=== PATIENT | female | born 1980 | race Caucasian/White ===

== ENCOUNTER 2023-05-27 13:24 | Emergency (ER) | payer BC ==
[2023-05-27] MEDS ORDERED: Ketorolac 30 MG/ML SDV IM ONE (13:54)
[2023-05-27] MEDS ORDERED: predniSONE 20 MG Tab PO ONE (13:54)
== END 2023-05-27 14:34 | disposition home or self-care (01) ==
LOC: VM.ED 13:24
DX: M54.50 Low back pain, unspecified (principal); G43.009 Migraine without aura, not intractable, without status migrainosus; M62.830 Muscle spasm of back; Z79.899 Other long term (current) drug therapy; Z91.041 Radiographic dye allergy status
CPT/HCPCS: 96372; 99283; J1885; J7512

== ENCOUNTER 2023-06-28 11:27 | Emergency (ER) | payer BC ==
[2023-06-28] MEDS ORDERED: Ketorolac 30 MG/ML SDV IM ONE (12:11)
[2023-06-28] MEDS ORDERED: Metoclopramide 10 MG/2 ML SDV IM ONE (12:12)
[2023-06-28] MEDS ORDERED: diphenhydrAMINE 50 MG/ML SDV IM ONE (12:13)
== END 2023-06-28 13:03 | disposition home or self-care (01) ==
LOC: VM.ED 11:27
DX: G43.909 Migraine, unspecified, not intractable, without status migrainosus (principal); Z88.0 Allergy status to penicillin; Z91.041 Radiographic dye allergy status; Z79.899 Other long term (current) drug therapy
CPT/HCPCS: 96372; 99283; J1200; J1885; J2765

== ENCOUNTER 2023-06-30 14:58 | Emergency (ER) | payer BC ==
[2023-06-30] MEDS: OLANZapine 2.5 MG Tab PO ONE (15:25)
== END 2023-06-30 16:23 | disposition home or self-care (01) ==
LOC: VM.ED 14:58
DX: R42 Dizziness and giddiness (principal); I10 Essential (primary) hypertension; Z88.0 Allergy status to penicillin; Z91.041 Radiographic dye allergy status; Z79.899 Other long term (current) drug therapy
CPT/HCPCS: 99283; 99284; A9270-GY

== ENCOUNTER 2023-07-07 11:12 | Emergency (ER) | payer BC ==
[2023-07-07] MEDS ORDERED: Ketorolac 30 MG/ML SDV IM ONE (11:53)
[2023-07-07] MEDS ORDERED: Metoclopramide 10 MG/2 ML SDV IM ONE (11:53)
[2023-07-07 11:54] LABS: BASOPHILS PERCENT AUTO 0.6 % (0.2-1.2); EOSINOPHILS ABSOLUTE AUTO 0.2 x10^3/uL (0.0-0.5); EOSINOPHILS PERCENT AUTO 2.5 % (0.0-4.0); HEMATOCRIT 40.7 % (33.0-47.0); HEMOGLOBIN 14.2 g/dL (12.0-16.0); IMMATURE GRAN ABSOLUTE AUTO 0.01 x10^3/uL (0.00-0.07); LYMPHOCYTES ABSOLUTE AUTO 2.4 x10^3/uL (1.0-4.8); LYMPHOCYTES PERCENT AUTO 33.9 % (25.0-50.0); MEAN CORPUSCULAR HEMOGLOBIN 34.5 pg (26.0-32.0); MEAN CORPUSCULAR HGB CONC 34.9 g/dL (32.0-36.0); MONOCYTES ABSOLUTE AUTO 0.5 x10^3/uL (0.0-0.8); MONOCYTES PERCENT AUTO 7.5 % (2.0-11.0); NEUTROPHILS PERCENT AUTO 55.4 % (50.0-80.0); PLATELET COUNT,PLT 236 x10^3/uL (130-400); RED BLOOD CELL COUNT 4.11 x10^6/uL (4.00-5.50); WHITE BLOOD CELL COUNT,WBC 7.2 x10^3/uL (4.0-10.0)
[2023-07-07 11:55] LABS: BILIRUBIN,URINE NEGATIVE (NEGATIVE); COLOR,URINE YELLOW (YELLOW); GLUCOSE,URINE NEGATIVE (NEGATIVE); KETONES,URINE NEGATIVE (NEGATIVE); LEUKOCYTE ESTERASE,URINE NEGATIVE (NEGATIVE); NITRITE,URINE NEGATIVE (NEGATIVE); OCCULT BLOOD,URINE MODERATE (NEGATIVE); PROTEIN,URINE NEGATIVE (NEGATIVE); UROBILINOGEN,URINE 0.2 EU/dL (0.2)
[2023-07-07 11:58] LABS: APPEARANCE,URINE SLIGHTLY CLOUDY (CLEAR); BACTERIA,URINE RARE /HPF (NOT SEEN); MUCUS,URINE NOT SEEN /LPF (NOT SEEN); SQUAMOUS EPITHELIAL CELLS,UR RARE /HPF (NOT SEEN); WBC,URINE NOT SEEN /HPF (NOT SEEN)
[2023-07-07 12:23] LABS: A/G RATIO 1.09; ALANINE AMINOTRANSFERASE,ALT 48 U/L (14-59); ALBUMIN 3.7 g/dL (3.4-5.0); ALKALINE PHOSPHATASE 112 U/L (46-116); ANION GAP 13.2 mmol/L (5-15); ASPARTATE AMNIOTRANSFERASE,AST 30 U/L (15-37); BILIRUBIN TOTAL 0.5 mg/dL (0.2-1.0); BLOOD UREA NITROGEN,BUN 24 mg/dL (7-18); CALCIUM 9.4 mg/dL (8.5-10.1); CARBON DIOXIDE,CO2 27 mmol/L (21-32); CHLORIDE,CL 105 mmol/L (98-107); CREATININE 1.3 mg/dL (0.55-1.02); ESTIMATED GFR 52 mL/min (>=60); GLUCOSE RANDOM 124 mg/dL (70-99); MAGNESIUM 2.1 mg/dL (1.8-2.4); POTASSIUM,K 4.2 mmol/L (3.5-5.1); PROTEIN TOTAL,TP 7.1 g/dL (6.4-8.2); SODIUM,NA 141 mmol/L (136-145); TSH ULTRASENSITIVE 1.319 uIU/mL (0.358-3.74)
== END 2023-07-07 13:59 | disposition home or self-care (01) ==
LOC: VM.ED 11:12
DX: G43.909 Migraine, unspecified, not intractable, without status migrainosus (principal); I10 Essential (primary) hypertension; Z91.041 Radiographic dye allergy status; Z88.0 Allergy status to penicillin; Z79.899 Other long term (current) drug therapy
CPT/HCPCS: 36415; 80053; 81001; 83735; 84443; 85025; 86140; 96372; 99284; J1885; J2765

== ENCOUNTER 2023-08-16 16:04 | Emergency (ER) | payer BC ==
[2023-08-16] MEDS ORDERED: Ketorolac 30 MG/ML SDV IM ONE (16:39)
[2023-08-16] MEDS ORDERED: diphenhydrAMINE 50 MG/ML SDV IM ONE (16:40)
== END 2023-08-16 17:46 | disposition home or self-care (01) ==
LOC: VM.ED 16:04
DX: G43.909 Migraine, unspecified, not intractable, without status migrainosus (principal); Z79.899 Other long term (current) drug therapy; Z88.0 Allergy status to penicillin; Z91.041 Radiographic dye allergy status
CPT/HCPCS: 96372; 99283; J1200; J1885; J3230

== ENCOUNTER 2024-07-24 10:03 | Day surgery (SDC) | payer BC ==
[2024-07-24] MEDS: Lactated Ringers 1,000 ML IV SCH (10:19)
[2024-07-24] MEDS ORDERED: fentaNYL 100 MCG/2 ML SDV ONE (11:24)
[2024-07-24] MEDS ORDERED: Propofol 200 MG/20 ML SDV ONE ×3 (11:24→11:52)
== END 2024-07-24 12:55 | disposition home or self-care (01) ==
LOC: VM.SDS 10:03
PROVIDERS: ATTEND Surgery
DX: Z12.11 Encounter for screening for malignant neoplasm of colon (principal); F33.1 Major depressive disorder, recurrent, moderate; Z79.899 Other long term (current) drug therapy
CPT/HCPCS: J2704; J3010; J7120

== ENCOUNTER 2024-07-26 12:47 | Emergency (ER) | payer BC ==
[2024-07-26] MEDS: diphenhydrAMINE 50 MG/ML SDV IM ONE (13:07)
[2024-07-26] MEDS: Ondansetron 4 MG Tab.DIS PO ONE (13:07)
[2024-07-26] MEDS: Ketorolac 30 MG/ML SDV IM ONE (13:07)
== END 2024-07-26 13:44 | disposition home or self-care (01) ==
LOC: VM.ED 12:47
DX: G43.909 Migraine, unspecified, not intractable, without status migrainosus (principal); I10 Essential (primary) hypertension; Z79.899 Other long term (current) drug therapy; Z79.84 Long term (current) use of oral hypoglycemic drugs; Z88.0 Allergy status to penicillin; Z88.5 Allergy status to narcotic agent; Z88.8 Allergy status to other drugs, medicaments and biological substances; Z91.041 Radiographic dye allergy status
CPT/HCPCS: 96372; 99283; A9270-GY; J1200; J1885

== ENCOUNTER 2024-07-27 20:27 | Emergency (ER) | payer BC ==
[2024-07-27] MEDS: Haloperidol Lactate 5 MG/ML SDV IV ONE (20:47)
[2024-07-27] MEDS: Ondansetron 8 MG in Sodium Chloride 0.9% 100 ML IV ONE (20:48)
[2024-07-27] MEDS: Prochlorperazine 10 MG/2 ML SDV IV ONE (20:48)
== END 2024-07-27 21:24 | disposition home or self-care (01) ==
LOC: VM.ED 20:27
DX: G43.909 Migraine, unspecified, not intractable, without status migrainosus (principal); I10 Essential (primary) hypertension; Z79.84 Long term (current) use of oral hypoglycemic drugs; Z79.899 Other long term (current) drug therapy; Z88.0 Allergy status to penicillin; Z91.048 Other nonmedicinal substance allergy status; Z88.8 Allergy status to other drugs, medicaments and biological substances
CPT/HCPCS: 96365; 96375; 99283-25; J0780; J1630; J2405; J3490

== ENCOUNTER 2024-08-17 12:05 | Emergency (ER) | payer BC ==
[2024-08-17] MEDS: Prochlorperazine 10 MG/2 ML SDV IV ONE (12:38)
[2024-08-17] MEDS: Haloperidol Lactate 5 MG/ML SDV IV ONE (12:39)
[2024-08-17] MEDS: Ondansetron 4 MG/2 ML SDV IVPUSH ONE (12:39)
== END 2024-08-17 14:07 | disposition home or self-care (01) ==
LOC: VM.ED 12:05
DX: G43.909 Migraine, unspecified, not intractable, without status migrainosus (principal); Z88.0 Allergy status to penicillin; Z91.048 Other nonmedicinal substance allergy status; Z88.8 Allergy status to other drugs, medicaments and biological substances
CPT/HCPCS: 96374; 96375; 99283; 99283-25; J0780; J1630; J2405

== ENCOUNTER 2024-08-25 12:21 | Emergency (ER) | payer BC ==
[2024-08-25] MEDS ORDERED: Sodium Chloride 0.9% 10 ML Syringe FLUSH PRN (12:31)
[2024-08-25 12:45] LABS: BASOPHILS PERCENT AUTO 0.3 % (0.2-1.2); EOSINOPHILS ABSOLUTE AUTO 0.1 x10^3/uL (0.0-0.5); EOSINOPHILS PERCENT AUTO 1.1 % (0.0-4.0); HEMATOCRIT 32.3 % (33.0-47.0); HEMOGLOBIN 11.3 g/dL (12.0-16.0); IMMATURE GRAN ABSOLUTE AUTO 0.02 x10^3/uL (0.00-0.07); LYMPHOCYTES ABSOLUTE AUTO 2.4 x10^3/uL (1.0-4.8); LYMPHOCYTES PERCENT AUTO 24.1 % (25.0-50.0); MEAN CORPUSCULAR HEMOGLOBIN 33.9 pg (26.0-32.0); MONOCYTES ABSOLUTE AUTO 0.7 x10^3/uL (0.0-0.8); MONOCYTES PERCENT AUTO 7.3 % (2.0-11.0); NEUTROPHILS ABSOLUTE AUTO 6.7 x10^3/uL (1.8-7.7); PLATELET COUNT,PLT 234 x10^3/uL (130-400); RED BLOOD CELL COUNT 3.33 x10^6/uL (4.00-5.50); WHITE BLOOD CELL COUNT,WBC 10.1 x10^3/uL (4.0-10.0)
[2024-08-25] MEDS: Lactated Ringers 1,000 ML IV ONE ×2 (12:58→13:41)
[2024-08-25 13:05] LABS: ALANINE AMINOTRANSFERASE,ALT 14 U/L (14-59); ALBUMIN 3.4 g/dL (3.4-5.0); ALKALINE PHOSPHATASE 56 U/L (46-116); ANION GAP 16.9 mmol/L (5-15); ASPARTATE AMNIOTRANSFERASE,AST 16 U/L (15-37); BILIRUBIN TOTAL 0.6 mg/dL (0.2-1.0); BLOOD UREA NITROGEN,BUN 13 mg/dL (7-18); CARBON DIOXIDE,CO2 23 mmol/L (21-32); CHLORIDE,CL 100 mmol/L (98-107); CREATININE 1.3 mg/dL (0.55-1.02); ESTIMATED GFR 51 mL/min (>=60); GLUCOSE RANDOM 149 mg/dL (70-99); POTASSIUM,K 3.9 mmol/L (3.5-5.1); PROTEIN TOTAL,TP 6.5 g/dL (6.4-8.2); SODIUM,NA 136 mmol/L (136-145)
[2024-08-25 13:06] LABS: ETHANOL BLOOD MEDICAL < 3 mg/dL (0-3)
[2024-08-25 13:10] LABS: APPEARANCE,URINE CLEAR (CLEAR); BILIRUBIN,URINE NEGATIVE (NEGATIVE); COLOR,URINE YELLOW (YELLOW); GLUCOSE,URINE NEGATIVE (NEGATIVE); KETONES,URINE NEGATIVE (NEGATIVE); LEUKOCYTE ESTERASE,URINE NEGATIVE (NEGATIVE); NITRITE,URINE NEGATIVE (NEGATIVE); OCCULT BLOOD,URINE NEGATIVE (NEGATIVE); PROTEIN,URINE NEGATIVE (NEGATIVE); UROBILINOGEN,URINE 0.2 EU/dL (0.2)
[2024-08-25 13:12] LABS: AMPHETAMINES SCREEN, URINE NEGATIVE (NEGATIVE); BARBITURATE SCREEN,URINE NEGATIVE (NEGATIVE)
[2024-08-25 13:13] LABS: BENZODIAZEPINES SCREEN,URINE POSITIVE (NEGATIVE); BUPRENORPHINE SCREEN,URINE NEGATIVE (NEGATIVE); COCAINE METABOLITES,URINE NEGATIVE (NEGATIVE); METHADONE SCREEN, URINE NEGATIVE (NEGATIVE); METHAMPHETAMINE SCREEN, URINE NEGATIVE (NEGATIVE); OXYCODONE SCREEN,URINE NEGATIVE (NEGATIVE); PCP SCREEN,URINE NEGATIVE (NEGATIVE); THC SCREEN,URINE 50 NG/ML POSITIVE (NEGATIVE)
== END 2024-08-25 14:32 | disposition home or self-care (01) ==
LOC: VM.ED 12:21
DX: I95.1 Orthostatic hypotension (principal); E86.0 Dehydration; T88.7XXA Unspecified adverse effect of drug or medicament, initial encounter; I10 Essential (primary) hypertension; Z88.0 Allergy status to penicillin; Z88.5 Allergy status to narcotic agent; Z88.8 Allergy status to other drugs, medicaments and biological substances; Z91.041 Radiographic dye allergy status; Z79.84 Long term (current) use of oral hypoglycemic drugs; Z79.899 Other long term (current) drug therapy
CPT/HCPCS: 36415; 70450; 80053; 80305-QW; 80307; 81003; 85025; 96360; 96361; 99284; 99285-25; J7120

== ENCOUNTER 2025-01-15 20:24 | Emergency (ER) | payer BC, OTHER ==
[2025-01-15] MEDS: Ibuprofen 200 MG Tab PO ONE (21:58)
== END 2025-01-15 22:15 | disposition home or self-care (01) ==
LOC: VM.ED 20:24
DX: M25.561 Pain in right knee (principal); I10 Essential (primary) hypertension; Z79.84 Long term (current) use of oral hypoglycemic drugs; Z88.0 Allergy status to penicillin; Z88.5 Allergy status to narcotic agent; Z88.8 Allergy status to other drugs, medicaments and biological substances; Z79.899 Other long term (current) drug therapy
CPT/HCPCS: 73562; 99283; A9270